=== PATIENT | male | born 2000 | race Caucasian/White ===

== ENCOUNTER 2020-08-06 02:25 | Emergency (ER) | payer OTHER ==
[~2020-08-06] VITALS: Ht 177.8 cm; Wt 68.0 kg
[2020-08-06 02:39] VITALS: BP 128/87
[2020-08-06] MEDS ORDERED: T3 PO (04:44)
== END 2020-08-06 04:58 | disposition home or self-care (01) ==
LOC: ER 02:25
DX: K08.89 Other specified disorders of teeth and supporting structures (principal); Z79.899 Other long term (current) drug therapy; Z88.8 Allergy status to other drugs, medicaments and biological substances
CPT/HCPCS: 99282